=== PATIENT | female | born 1980 | race American Indian/Alaskan Native ===

== ENCOUNTER 2021-04-19 09:33 | Emergency (ER) | payer SELFPAY ==
[~2021-04-19] VITALS: Ht 170.2 cm; Wt 86.4 kg
[2021-04-19 09:50] VITALS: TEMP 97.6
[2021-04-19] MEDS ORDERED: CRUTCHES MC (12:10)
[2021-04-19] MEDS ORDERED: NORCO 325 MG-51 TAB PO (12:11)
[2021-04-19 13:02] VITALS: BP 135/78; PULSE 58
== END 2021-04-19 13:10 | disposition home or self-care (01) ==
LOC: COL.ER 09:33
DX: S86.912A Strain of unspecified muscle(s) and tendon(s) at lower leg level, left leg, initial encounter (principal); X50.1XXA Overexertion from prolonged static or awkward postures, initial encounter; Y92.511 Restaurant or cafe as the place of occurrence of the external cause; Y99.0 Civilian activity done for income or pay
CPT/HCPCS: J1885